=== PATIENT | female | born 1985 | race Asian ===

== ENCOUNTER 2016-06-23 09:38 | Emergency (ER) | payer OTHER ==
[2016-06-23 10:14] VITALS: BP 108/78
--- NOTE | 2016-06-23 12:08 | UC ---
Laci Murrell Adam, scribed for Luna Luque DO on 06/23/16 at 1126 . Abdominal Pain Female HPI - HPI Summary HPI Summary: Pt is a 30 year old female presenting with abdominal pain that set on yesterday. It is localized diffusely in the lower abdomen and it is described as a pressure that is more painful with palpation. The pain was not worse during a bumpy car ride. Pt was also having back pain but is not any more. She also has a sore throat and chronic pain in her left toe. She denies fever, chills, abdominal pain, CP, SOB, NICOLE, eye discharge, myalgia, nausea, vomiting, and urinary symptoms. PMHx of childhood asthma. Pt gave via vaginal delivery in March (3 months ago). She has had 1 UTI in the past with pain during urination. She is a former smoker. FMHx of breast cancer. - History of Current Complaint Chief Complaint: UCAbdominalPain Stated Complaint: LOWER ABD/BACK PAIN Time Seen by Provider: 06/23/16 10:59 Hx Obtained From: Patient Hx Last Menstrual Period: 2 weeks ago ?: No Onset/Duration: Gradual Onset, Lasting Days, Still Present Timing: Constant Severity Initially: Moderate Severity Currently: Moderate Pain Intensity: 7 Location: Diffuse, Discrete At: LLQ, Suprapubic Radiates: No Character: Aching, Dull Aggravating Factor(s): Other: - Palpation Alleviating Factor(s): Nothing Associated Signs and Symptoms: Positive: Negative Allergies/Adverse Reactions: Allergies Allergy/AdvReac Type Severity Reaction Status Date / Time No Known Allergies Allergy Verified 03/22/16 08:33 PMH/Surg Hx/FS Hx/Imm Hx Endocrine History Of: Denies: Diabetes, Thyroid Disease Cardiovascular History Of: Denies: Cardiac Disorders, Hypertension Respiratory History Of: Reports: Asthma - CHILDHOOD Denies: COPD GI/ History Of: Denies: Ulcer - Surgical History Surgical History: None - Family History Known Family History: Positive: Other - Breast cancer Negative: Cardiac Disease, Hypertension, Diabetes - Social History Lives: With Family - Male friend Alcohol Use: Occasionally Substance Use Type: None Substance Use Comment - Amount & Last Used: no drug use with Smoking Status (MU): Former Smoker Have You Smoked in the Last Year: No When Did the Patient Quit Smoking/Using Tobacco: 8 YEARS AGO - Immunization History Most Recent Influenza Vaccination: plans post , undecided Most Recent Tetanus Shot: 01/17/16 Most Recent Pneumonia Vaccination: never Review of Systems Constitutional: Negative Skin: Negative Eyes: Negative ENT: Negative Respiratory: Negative Cardiovascular: Negative Gastrointestinal: Abdominal Pain Genitourinary: Negative Motor: Negative Neurovascular: Negative Musculoskeletal: Negative Neurological: Negative Psychological: Negative All Other Systems Reviewed And Are Negative: Yes Physical Exam Triage Information Reviewed: Yes Appearance: Well-Appearing, No Pain Distress, Well-Nourished Vital Signs: Initial Vital Signs Temp 97.9 F 06/23/16 10:08 Pulse 89 06/23/16 10:08 Resp 18 06/23/16 10:08 BP 108/78 06/23/16 10:08 Pulse Ox 96 06/23/16 10:08 Vital Signs Reviewed: Yes Eyes: Positive: Conjunctiva Clear. Negative: Discharge ENT: Positive: Hearing grossly normal. Negative: Muffled/hoarse voice Neck: Positive: Supple, Nontender Respiratory: Positive: Lungs clear, Normal breath sounds, No respiratory distress, No accessory muscle use Cardiovascular: Positive: RRR, No Murmur Abdomen Description: Positive: Soft, Other: - diffuse tenderness, worst pain in suprapubic region and LLQ.. Negative: CVA Tenderness (R), CVA Tenderness (L), Distended, Guarding Bowel Sounds: Positive: Present Musculoskeletal Exam: Normal Neurological: Positive: Alert, Muscle Tone Normal Psychological Exam: Normal Psychological: Positive: Age Appropriate Behavior Skin Exam: Normal - Warm, dry, normal color Abd Pain Female Course/Dx - Differential Dx/Diagnosis Differential Diagnosis: Constipation, Ectopic , Ovarian Cyst, , Renal Colic, Urinary Tract Infection Provider Diagnoses: uti Discharge - Discharge Plan Condition: Stable Disposition: HOME Prescriptions: Sulfamethox/Trimethoprim DS* [Bactrim DS 800/160 TAB*] 1 tab PO BID #6 tab Patient Education Materials: Urinary Tract Infection in Women (ED), Acute Abdominal Pain (ED) Additional Instructions: ANTIBIOTIC THERAPY: You have been given an antibiotic prescription. It's important that you take all the medication, unless instructed otherwise by your physician. Failure to complete the entire course can result in relapse of your condition. Common side effects of antibiotics include nausea, intestinal cramping, or diarrhea. Women may develop vaginal yeast infections, and babies can get yeast (thrush) in the mouth following the use of antibiotics. Contact your physician if you develop significant side effects from this medication. Allergy to this antibiotic can result in hives, wheezing, faintness, or itching. If symptoms of allergy occur, stop the medication and call the doctor. ANY TIME YOU TAKE AN ANTIBIOTIC, IT IS IMPORTANT TO REPLENISH THE BODY'S BALANCE OF "GOOD" BACTERIA BY EATING HIGH QUALITY CULTURED FOOD SUCH YOGURT, SAURKRAUT OR LAKIA CHI AND/OR TAKING A PROBIOTIC SUPPLEMENT. The documentation as recorded by the Laci stanton Adam accurately reflects the service I personally performed and the decisions made by me, Luna Luque DO.
== END 2016-06-23 11:53 | disposition home or self-care (01) ==
LOC: UCEAST 09:38
DX: N39.0 Urinary tract infection, site not specified (principal)
CPT/HCPCS: 81002; 81025; 87086; 99212; G0463

== ENCOUNTER 2017-05-30 20:05 | Inpatient (IN) | payer OTHER ==
[2017-05-30] MEDS ORDERED: OXYTOCIN* 10 UNITS/ML 1 ML VIAL IM PRN (21:00)
[2017-05-30] MEDS ORDERED: Glycerin ADULT SUPP PR PRN (21:00)
[2017-05-30] MEDS ORDERED: Dibucaine 1% 28.35 GM TUBE PR PRN (21:00)
[2017-05-30] MEDS ORDERED: Witch Hazel PAD* JAR TOPICAL PRN (21:00)
[2017-05-30] MEDS: Ibuprofen TAB* 600 MG PO PRN (21:28)
[2017-05-30] MEDS: Docusate CAP* 100 MG PO SCH (21:29)
[2017-05-31] MEDS: Ibuprofen TAB* 600 MG PO PRN ×3 (03:17→19:42)
[2017-05-31 05:56] LABS: Hematocrit 32 % (35-47); Hemoglobin 11.1 g/dl (12.0-16.0); Mean Corpuscular HGB Conc 35 g/dl (31-36); Mean Corpuscular Hemoglobin 31 pg (27-31); Mean Corpuscular Volume 88 fL (80-97); Mean Platelet Volume 9 um3 (7.4-10.4); Platelet Count 183 10^3/ul (150-450); Red Blood Count 3.57 10^6/ul (4.0-5.4); Red Cell Distribution Width 14 % (10.5-15); White Blood Count 12.7 10^3/ul (3.5-10.8)
[2017-05-31] MEDS ORDERED: Ferrous Gluconate TAB* 324 MG TAB PO SCH (09:00)
[2017-05-31] MEDS ORDERED: Influenza VAC *QUAD* 2017-18* 0.5 ML SYRINGE IM ONE (09:00)
[2017-05-31] MEDS: Docusate CAP* 100 MG PO SCH ×3 (09:20→20:40)
[2017-05-31] MEDS: Oseltamivir CAP* 75 MG CAP PO SCH (12:16)
--- NOTE | 2017-05-31 12:20 | PTEDU ---
Patient Name: BREANNA DIAS BREANNA DIAS selected video: Follow Me Mum: [employer] to Successful to view on 018 at 12:20:31 PM from [id number]
[2017-05-31] MEDS: Acetaminophen TAB* 325 MG PO PRN (20:43)
[2017-06-01] MEDS: Ibuprofen TAB* 600 MG PO PRN ×2 (05:56→17:45)
[2017-06-01] MEDS: Acetaminophen TAB* 325 MG PO PRN (05:57)
[2017-06-01 09:04] VITALS: BP 104/53
[2017-06-01] MEDS: Oseltamivir CAP* 75 MG CAP PO SCH (10:06)
[2017-06-01] MEDS: Docusate CAP* 100 MG PO SCH (10:06)
== END 2017-06-01 17:55 | DRG 560 ==
LOC: MCHOBOUT 20:05 → MCHOB 20:18
PROVIDERS: ADMIT Midwife; ATTEND Midwife
PROC: 10E0XZZ Delivery of Products of Conception, External Approach (ICD-10-PCS; principal; 2017-05-30)
PROC: 4A1HX4Z Monitoring of Products of Conception, Cardiac Electrical Activity, External Approach (ICD-10-PCS; 2017-05-30)
DX: O62.3 Precipitate labor (principal); O69.3XX0 Labor and delivery complicated by short cord, not applicable or unspecified; O99.824 Streptococcus B carrier state complicating childbirth; Z23 Encounter for immunization; Z3A.38 38 weeks gestation of pregnancy; Z37.0 Single live birth
CPT/HCPCS: 36415; 85027; 90686; A9270-GY

== ENCOUNTER 2017-12-03 23:20 | Emergency (ER) | payer OTHER ==
[2017-12-03] MEDS ORDERED: NS 0.9% 1000 ML* 1,000 ML IV SCH (23:45)
[2017-12-04 00:41] LABS: INR 0.94 (0.77-1.02)
[2017-12-04 01:19] LABS: EGFR Non-African American 105.2 (>60)
[2017-12-04 01:29] LABS: ABS Basophils 0.1 10^3/ul (0-0.2); ABS Eosinophils 0 10^3/ul (0-0.6); ABS Monocytes 0.7 10^3/ul (0-0.8); ABS Neutrophils 13.1 10^3/ul (1.5-7.7); ABS Nucleated RBC 0 10^3/ul; Eosinophil % 0.1 % (0-6); Hematocrit 37 % (35-47); Lymphocyte % 6.5 % (25-47); Mean Corpuscular HGB Conc 35 g/dl (31-36); Mean Corpuscular Hemoglobin 30 pg (27-31); Mean Corpuscular Volume 87 fL (80-97); Mean Platelet Volume 9.8 um3 (7.4-10.4); Nucleated Red Blood Cells % 0; Platelet Count 184 10^3/ul (150-450); Red Blood Count 4.28 10^6/ul (4.00-5.40); Red Cell Distribution Width 13 % (10.5-15); White Blood Count 14.9 10^3/ul (3.5-10.8)
[2017-12-04] MEDS ORDERED: Iohexol 300* (CONTRAST) 10 ML SDV IV ONE (02:13)
[2017-12-04 02:23] LABS: Urine Appearance Clear; Urine Blood Negative (Negative); Urine Color Yellow; Urine Ketones Trace (Negative); Urine Protein Negative (Negative); Urine Specific Gravity 1.015 (1.010-1.030); Urine Urobilinogen Negative (Negative)
[2017-12-04] MEDS ORDERED: Morphine VIAL* 4 MG/ML VIAL (1 ml vial) IV ONE (05:05)
[2017-12-04] MEDS ORDERED: Ondansetron INJ* 2 MG/ML VIAL IV ONE (05:05)
[2017-12-04] MEDS ORDERED: NS 0.9% 1000 ML* 1,000 ML IV ONE (05:07)
--- NOTE | 2017-12-04 05:46 | ED ---
Abdominal Pain/Female - HPI Summary HPI Summary: This is maximino Daly documenting for Dr. Carlos A Krishnan MD. Pt is a 32 y/o F BIBA to ED c/o abdominal pain that started approximately 2 hours ago. Rates her pain intensity as an 8/10 in severity. Notes vomiting and diarrhea. Denies vaginal bleeding and discharge. Still has her appendix. No chance of . Denies alcohol use, drug use, or smoking. - History of Current Complaint Chief Complaint: EDAbdPain Stated Complaint: ABD PAIN Time Seen by Provider: 12/03/17 23:27 Hx Obtained From: Patient Hx Last Menstrual Period: 2 weeks ago Onset/Duration: Lasting Hours, Still Present Severity Currently: Severe Pain Intensity: 8 Pain Scale Used: 0-10 Numeric Aggravating Factor(s): Nothing Alleviating Factor(s): Nothing Associated Signs and Symptoms: Positive: Vomiting, Diarrhea. Negative: Vaginal Bleeding, Vaginal Discharge Allergies/Adverse Reactions: Allergies Allergy/AdvReac Type Severity Reaction Status Date / Time No Known Allergies Allergy Verified 03/22/16 08:33 Home Medications: Home Medications NK [No Home Medications Reported] 12/04/17 [History Confirmed 12/04/17] PMH/Surg Hx/FS Hx/Imm Hx Endocrine/Hematology History: Denies: Hx Diabetes, Hx Thyroid Disease Cardiovascular History: Denies: Hx Hypertension Respiratory History: Reports: Hx Asthma - CHILDHOOD Denies: Hx Chronic Obstructive Pulmonary Disease (COPD) GI History: Denies: Hx Ulcer History: Denies: Hx Renal Disease Infectious Disease History: No Infectious Disease History: Denies: Hx Hepatitis, Hx Human Immunodeficiency Virus (HIV), History Other Infectious Disease, Traveled Outside the [place] in Last 30 Days - Family History Known Family History: Positive: Other - Breast cancer Negative: Cardiac Disease, Hypertension, Diabetes - Social History Alcohol Use: Occasionally Substance Use Type: Reports: None Substance Use Comment - Amount & Last Used: no drug use with Smoking Status (MU): Former Smoker Have You Smoked in the Last Year: No Review of Systems Positive: Abdominal Pain, Vomiting, Diarrhea Genitourinary: Other - Negative: vaginal bleeding, vaginal discharge All Other Systems Reviewed And Are Negative: Yes Physical Exam - Summary Physical Exam Summary: Appearance: Well appearing, no pain distress Skin: warm, dry, reflects adequate perfusion Head/face: normal Eyes: EOMI, VICTOR M ENT: normal Neck: supple, non-tender Respiratory: CTA, breath sounds present Cardiovascular: RRR, pulses symmetrical Abdomen: diffuse tenderness in abdomen, soft Bowel: present Musculoskeletal: normal, strength/ROM intact Neuro: normal, sensory motor intact, A&Ox3 Triage Information Reviewed: Yes Vital Signs On Initial Exam: Initial Vitals Pulse BP Pulse Ox 60 88/54 100 12/03/17 23:23 12/03/17 23:23 12/03/17 23:23 Vital Signs Reviewed: Yes Diagnostics - Vital Signs Vital Signs Temp Pulse Resp BP Pulse Ox 12/04/17 05:00 87 99 12/04/17 04:53 71 94/68 98 12/04/17 04:23 64 77/49 98 12/04/17 04:00 72 97 12/04/17 03:52 66 93/56 99 12/04/17 03:23 64 83/54 98 12/04/17 03:00 77 97 12/04/17 02:22 74 104/66 97 12/04/17 02:00 75 98 12/04/17 01:53 71 92/54 98 12/04/17 01:22 65 94/59 100 12/04/17 01:00 67 100 12/04/17 00:52 72 94/68 100 12/04/17 00:22 60 111/77 100 12/04/17 00:15 73 98 12/04/17 00:00 62 99 12/03/17 23:52 67 109/75 98 12/03/17 23:34 98.2 F 61 20 88/54 100 12/03/17 23:25 65 100 12/03/17 23:23 60 88/54 100 - Laboratory Lab Results: Lab Results 12/03/17 12/03/17 12/03/17 Range/Units 23:51 23:51 23:51 WBC 14.9 H (3.5-10.8) 10^3/ul RBC 4.28 (4.00-5.40) 10^6/ul Hgb 13.0 (12.0-16.0) g/dl Hct 37 (35-47) % MCV 87 (80-97) fL MCH 30 (27-31) pg MCHC 35 (31-36) g/dl RDW 13 (10.5-15) % Plt Count 184 (150-450) 10^3/ul MPV 9.8 (7.4-10.4) um3 Neut % (Auto) 88.4 H (38-83) % Lymph % (Auto) 6.5 L (25-47) % [place] % (Auto) 4.6 (0-7) % Eos % (Auto) 0.1 (0-6) % Baso % (Auto) 0.4 (0-2) % Absolute Neuts (auto) 13.1 H (1.5-7.7) 10^3/ul Absolute Lymphs (auto) 1.0 (1.0-4.8) 10^3/ul Absolute Monos (auto) 0.7 (0-0.8) 10^3/ul Absolute Eos (auto) 0 (0-0.6) 10^3/ul Absolute Basos (auto) 0.1 (0-0.2) 10^3/ul Absolute Nucleated RBC 0 10^3/ul Nucleated RBC % 0 INR (Anticoag Therapy) (0.77-1.02) APTT (26.0-36.3) seconds Sodium 139 (135-145) mmol/L Potassium 3.5 (3.5-5.0) mmol/L Chloride 105 (101-111) mmol/L Carbon Dioxide 26 (22-32) mmol/L Anion Gap 8 (2-11) mmol/L BUN 21 (6-24) mg/dL Creatinine 0.66 (0.51-0.95) mg/dL Est GFR ( Amer) 127.2 (>60) Est GFR (Non-Af Amer) 105.2 (>60) BUN/Creatinine Ratio 31.8 H (8-20) Glucose 89 (70-100) mg/dL Lactic Acid 1.1 (0.5-2.0) mmol/L Calcium 9.3 (8.6-10.3) mg/dL Total Bilirubin 0.70 (0.2-1.0) mg/dL AST 14 (13-39) U/L ALT 11 (7-52) U/L Alkaline Phosphatase 38 (34-104) U/L Total Protein 7.2 (6.4-8.9) g/dL Albumin 4.3 (3.2-5.2) g/dL Globulin 2.9 (2-4) g/dL Albumin/Globulin Ratio 1.5 (1-3) Lipase 14 (11.0-82.0) U/L Beta HCG, Quant < 0.60 mIU/mL Urine Color Urine Appearance Urine pH (5-9) Ur Specific [place] (1.010-1.030) Urine Protein (Negative) Urine Ketones (Negative) Urine Blood (Negative) Urine Nitrate (Negative) Urine Bilirubin (Negative) Urine Urobilinogen (Negative) Ur Leukocyte Esterase (Negative) Urine Glucose (Negative) 12/03/17 12/04/17 Range/Units 23:51 02:14 WBC (3.5-10.8) 10^3/ul RBC (4.00-5.40) 10^6/ul Hgb (12.0-16.0) g/dl Hct (35-47) % MCV (80-97) fL MCH (27-31) pg MCHC (31-36) g/dl RDW (10.5-15) % Plt Count (150-450) 10^3/ul MPV (7.4-10.4) um3 Neut % (Auto) (38-83) % Lymph % (Auto) (25-47) % [place] % (Auto) (0-7) % Eos % (Auto) (0-6) % Baso % (Auto) (0-2) % Absolute Neuts (auto) (1.5-7.7) 10^3/ul Absolute Lymphs (auto) (1.0-4.8) 10^3/ul Absolute Monos (auto) (0-0.8) 10^3/ul Absolute Eos (auto) (0-0.6) 10^3/ul Absolute Basos (auto) (0-0.2) 10^3/ul Absolute Nucleated RBC 10^3/ul Nucleated RBC % INR (Anticoag Therapy) 0.94 (0.77-1.02) APTT 34.1 (26.0-36.3) seconds Sodium (135-145) mmol/L Potassium (3.5-5.0) mmol/L Chloride (101-111) mmol/L Carbon Dioxide (22-32) mmol/L Anion Gap (2-11) mmol/L BUN (6-24) mg/dL Creatinine (0.51-0.95) mg/dL Est GFR ( Amer) (>60) Est GFR (Non-Af Amer) (>60) BUN/Creatinine Ratio (8-20) Glucose (70-100) mg/dL Lactic Acid (0.5-2.0) mmol/L Calcium (8.6-10.3) mg/dL Total Bilirubin (0.2-1.0) mg/dL AST (13-39) U/L ALT (7-52) U/L Alkaline Phosphatase (34-104) U/L Total Protein (6.4-8.9) g/dL Albumin (3.2-5.2) g/dL Globulin (2-4) g/dL Albumin/Globulin Ratio (1-3) Lipase (11.0-82.0) U/L Beta HCG, Quant mIU/mL Urine Color Yellow Urine Appearance Clear Urine pH 6.0 (5-9) Ur Specific [place] 1.015 (1.010-1.030) Urine Protein Negative (Negative) Urine Ketones Trace A (Negative) Urine Blood Negative (Negative) Urine Nitrate Negative (Negative) Urine Bilirubin Negative (Negative) Urine Urobilinogen Negative (Negative) Ur Leukocyte Esterase Negative (Negative) Urine Glucose Negative (Negative) Result Diagrams: 12/03/17 23:51 12/03/17 23:51 Lab Statement: Any lab studies that have been ordered have been reviewed, and results considered in the medical decision making process. - CT CT Abd/Pel CT Interpretation Completed By: ED Physician - Negative Abdominal Pain Fem Course/Dx - Course Course Of Treatment: Pt is a 32 y/o F who presents to ED c/o abdominal pain that started today. Rates her pain intensity as an 8/10 in severity. Notes vomiting and diarrhea. Denies vaginal bleeding and discharge. Physical exam revealed diffuse tenderness in abdomen. In ED course pt was given morphine, Zofran, and fluids. CT Abd/Pel was negative. Pt diagnosed with abdominal pain and ruled out for pancreatitis. Dr. Sawant came down to see pt be admitted, but pt doesnt want to stay. Pt was discharged and told to follow up with juke box servicer and PCP. - Diagnoses Differential Diagnosis: Positive: Appendicitis, Diverticulitis, Ovarian Cyst, Pancreatitis, Renal Colic, Urinary Tract Infection Provider Diagnoses: Abdominal pain - Provider Notifications Discussed Care Of Patient With: Reta Rooth Time Discussed With Above Provider: 05:30 Instructed by Provider To: Other - Dr. Sawant wanted to admit pt but pt wanted to be discharged. Discharge - Sign-Out/Discharge Documenting (check all that apply): Patient Departure - Discharge - Discharge Plan Condition: Fair Disposition: HOME Patient Education Materials: Acute Abdominal Pain (ED) Referrals: Reta Celis CNM [Primary Care Provider] - 3 Days Dayne Yousif MD [Medical Doctor] - As Soon As Possible Additional Instructions: Follow up with juke box servicer. Return to ED for any new or worsening symptoms. - Billing Disposition and Condition Condition: FAIR Disposition: Home
[2017-12-04 06:05] VITALS: BP 101/60
--- NOTE | 2017-12-04 08:21 | RAD ---
CLINICAL HISTORY: Abdominal pain COMPARISON: CT abdomen pelvis dated July 03, 2003 TECHNIQUE: Contrast enhanced CT examination of the abdomen and pelvis from the lung bases through the initial tuberosities. The patient received 64 mL Omnipaque 300 intravenously prior to imaging.The patient received oral contrast as well prior to imaging. FINDINGS: VISUALIZED LUNG BASES: The visualized lung bases are grossly clear. There is no pleural effusion. ABDOMEN AND PELVIS: The liver, spleen, pancreas and adrenal glands are grossly normal in appearance. The gallbladder is normal. The kidneys are normal in appearance without focal mass, calcification or signs of hydronephrosis. The oral contrast has progressed as far as the transverse colon. The small and large bowel are not distended. The patient's normal appendix is identified in the right lower quadrant measuring 5 mm in diameter with gas in the lumen (coronal image 38 and axial image 60). There is no gross retroperitoneal or mesenteric lymphadenopathy. The pelvic viscera is normal in appearance. The abdominal aorta and iliac arteries are normal in course and diameter. There are no sinister bone lesions. IMPRESSION: Normal CT examination.
== END 2017-12-04 06:08 | disposition home or self-care (01) ==
LOC: ED 23:20
DX: R10.9 Unspecified abdominal pain (principal); R11.10 Vomiting, unspecified; R19.7 Diarrhea, unspecified; Z87.891 Personal history of nicotine dependence
CPT/HCPCS: 36415; 74177; 80053; 81003; 83605; 83690; 84702; 85025; 85610; 85730; 99284; J2270; Q9967

== ENCOUNTER 2017-12-30 11:12 | Emergency (ER) | payer OTHER ==
[2017-12-30 11:21] VITALS: BP 101/71
--- NOTE | 2017-12-30 11:33 | UC ---
Skin Complaint HPI - HPI Summary HPI Summary: IN ROOM NOTE: Patient is a 32 y/o F w/ c/o SWELLING OF BACK OF LEFT HAND which onset two days ago. Started off SMALL AND RED between 2nd and 3rd fingers of left hand. Patient states area is PRURITIC. She states she has not been outside recently. Area is red and itchy, swelling onset yesterday. Area began to spread to 4th finger and knuckles gradually after onset. Area is painful, making a fist aggravates pain. Patient has bad allergies during the summer. No Hx of trauma to left hand. No cuts to left hand. She denies any other medical problems. Patient had mild case of pancreatitis a few weeks ago. This was first episode. Patient does not drink alcohol often. No abdominal pain at present. No major surgeries. 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 No FMHx of pancreatitis, HTN, diabetes. No Hx of contact dermatitis. Patient is not currently . She states she applied an " remedy" to hand which provided mild relief of Sx. Hot water aggravates Sx. Patient does not think she has been bitten by insect. No allergies to medication noted. MD NOTE: Vital signs stable, afebrile, 10/10 discomfort. NURSE'S NOTE: pt states that on she began to notice that her lt hand is swelling. pt has a small crack between her lt 2nd and 3rd finger. pt states this is where it began. pt states thi hand itches and is burning. pain is 10/10 - History of Current Complaint Chief Complaint: UCUpperExtremity Time Seen by Provider: 12/30/17 11:18 Stated Complaint: L HAND SWELLING Hx Obtained From: Patient Hx Last Menstrual Period: 2 weeks ago Onset/Duration: Sudden Onset - ONSET TWO DAYS AGO, Still Present, Worse Since Skin Exposure Onset/Duration: Days Ago - TWO DAYS AGO Current Severity: Severe - 10/10 Pain Intensity: 10 Pain Scale Used: 0-10 Numeric - 10/10 Location: Hand (Left) - dorsum Character: Swelling, Pruritus, Pain, Redness Aggravating Factor(s): Other - hot water Alleviating Factor(s): Other - " remedy" Associated Signs & Symptoms: Negative: Abdominal Pain - Allergy/Home Medications Allergies/Adverse Reactions: Allergies Allergy/AdvReac Type Severity Reaction Status Date / Time No Known Allergies Allergy Verified 12/30/17 11:21 Review of Systems Skin: Other - POSITIVE: PRURITIS, ERYTHEMA, SWELLING AND PAIN AT BACK OF LEFT HAND Gastrointestinal: Other - NEGATIVE: ABDOMINAL PAIN Musculoskeletal: Other: - NEGATIVE: TRAUMA TO LEFT HAND All Other Systems Reviewed And Are Negative: Yes - Comments Additional Review of Systems Comments: POSITIVE: PRURITIS, ERYTHEMA, SWELLING AND PAIN AT BACK OF LEFT HAND NEGATIVE: LEFT HAND TRAUMA, ABDOMINAL PAIN PMH/Surg Hx/FS Hx/Imm Hx - Additional Past Medical History Additional PMH: NEGATIVE: CONTACT DERMATITIS Endocrine History: Other - POSITIVE: PANCREATITIS Other Endocrine History: none - Surgical History Surgical History: None - Family History Known Family History: Positive: Other - Breast cancer Negative: Cardiac Disease, Hypertension, Diabetes - Social History Alcohol Use: Occasionally Substance Use Type: None Substance Use Comment - Amount & Last Used: no drug use with Smoking Status (MU): Former Smoker Have You Smoked in the Last Year: No When Did the Patient Quit Smoking/Using Tobacco: 8 YEARS AGO - Immunization History Most Recent Influenza Vaccination: plans post , undecided Most Recent Tetanus Shot: 01/17/16 Most Recent Pneumonia Vaccination: never Physical Exam - Summary Physical Exam Summary: Appearance: The patient is well-appearing, is in no pain distress, and is well- nourished. Eyes: Conjunctiva are clear. ENT: The hearing is grossly normal, the pharynx is normal, and the TMs are normal. There is no muffled or hoarse voice. Neck: The neck is supple and there is no lymphadenopathy. Respiratory: The chest is nontender. The lungs are clear, there are normal breath sounds, and there is no respiratory distress. Cardiovascular: Heart is regular rate and rhythm. There is no murmur. Abdomen: The abdomen is soft and nontender. There is no organomegaly. Bowel sounds: present Musculoskeletal: Strength is intact. The patient moves all extremities. Neurological: The patient is alert. Psychological: The patient displays age appropriate behavior Skin: Negative for rashes. LEFT HAND EXAMINATION: VOLAR ASPECT OF LEFT HAND APPEARS NORMAL. DORSAL ASPECT . MILD SWELLING OVER 1ST, 2ND, 3RD METACARPALS WITH ERYTHEMA. BETWEEN 1ST AND 2ND FINGERS, THERE IS A SLIGHT DISCONTINUITY OF THE SKIN. MILD DISCOMFORT WITH PALPATION ONLY OVER THE AREA WITH SWELLING AND ERYTHEMA. I CAN IMAGINE THE ERYTHEMA IS PROGRESSING OVER THE DORSAL LEFT WRIST CREASE. IT ALSO APPEARS TO BE SPREADING DISTALLY OVER THE 3RD FINGER DORSUM. THERE IS NO EPITROCHLEAR ADENOPATHY OR LEFT AXIALLY ADENOPATHY. Triage Information Reviewed: Yes Vital Signs: Initial Vital Signs Temp 97.6 F 12/30/17 11:17 Pulse 80 12/30/17 11:17 Resp 18 12/30/17 11:17 BP 101/71 12/30/17 11:17 Pulse Ox 100 12/30/17 11:17 Vital Signs Reviewed: Yes Course/Dx - Course Course Of Treatment: Medications have been included in the original chart and reviewed. Normal BP reading and no follow-up instructions requried. Healthy 32 y /o F with swelling of left hand. Discussed at length possibility this is cellulitis to bug bite or allergic reaction. However, she has no vesicles and denies exposure. We decided to treat this as cellulitis with Keflex. Diff Dx: allergic reaction vs cellulitis. Dx. cellulitis, dorsum, left hand. - Differential Diagnoses - Skin Complaint Differential Diagnoses: Other - Diff Dx: allergic reaction vs cellulitis - Diagnoses Provider Diagnoses: CELLULITIS OF DORSUM OF LEFT HAND Discharge - Sign-Out/Discharge Documenting (check all that apply): Patient Departure - discharge All imaging exams completed and their final reports reviewed: No Studies - Discharge Plan Condition: Stable Disposition: HOME Prescriptions: Cephalexin CAP* [Keflex 500 CAP*] 500 mg PO TID #30 cap Patient Education Materials: Cellulitis (DC) Referrals: Reta Celis CNM [Primary Care Provider] - Additional Instructions: PLEASE SEEK CARE AT THE EMERGENCY DEPARTMENT IF SYMPTOMS WORSEN OR IF NEW SYMPTOMS DEVELOP. FOLLOW UP WITH YOUR PRIMARY CARE PHYSICIAN. As we discussed, the swelling on the back of your left hand could be an allergic reaction but it could also be a skin infection. We will treat it as a infection with an antibiotic that he will take 3 times a day for 10 days. Watch for any spreading redness pain or swelling. Even if you're on the antibiotic, recheck if you notice any of these things. If you develop fever, you should also be rechecked. I have given you Keflex, 3 times a day. Take it for 5 days. If you are completely well, you can stop. Otherwise, continue until you are completely well for a day or up to 10 days. If you are not improving in 5 days, re check with us. - Billing Disposition and Condition Condition: STABLE Disposition: Home - Attestation Statements Document Initiated by Luciano: Yes Documenting Scribe: Kasi Vivas Provider For Whom Luciano is Documenting (Include Credential): Marcello Huddleston M.D. Scribe Attestation: Kasi Murrell, scribed for Marcello Huddleston M.D. on 12/30/17 at 1154. Scribe Documentation Reviewed: Yes Provider Attestation: The documentation as recorded by the Kasi stanton accurately reflects the service I personally performed and the decisions made by me, Marcello Huddleston M.D.
== END 2017-12-30 11:55 | disposition home or self-care (01) ==
LOC: UCEAST 11:12
DX: L03.114 Cellulitis of left upper limb (principal)
CPT/HCPCS: 99212; G0463